=== PATIENT | female | born 1985 | race Caucasian/White ===

== ENCOUNTER 2022-08-09 12:49 | Emergency (ER) | payer OTHER ==
[~2022-08-09] VITALS: Ht 177.8 cm; Wt 89.4 kg
[2022-08-09 12:57] VITALS: BP 124/70
--- NOTE | 2022-08-09 13:00 | NUR ---
36YO FEMALE PT C/O N/V . CHILLS AND CRAMPING 8/10 LOWER ABDOMINAL PAIN XTHIS MORNING. REPORTS SUDDEN ONSET W/ CLEAR EMESIS, DENIES BLOOD. STATES DRINKING "MORE ALCOHOL THAN USUAL LAST NIGHT". ABDOMEN TENDER TO TOUCH, NON DISTENDED. 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 DENIES CHEST PAIN, SOB OR FEVER. 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 BED AT LOWEST POSITION, BED RAAILS UPX1 HX:ASTHMA ALLERGIES:PENICILLIN
--- NOTE | 2022-08-09 13:03 | NUR ---
Patient ambulated to bed 6.
[2022-08-09] MEDS ORDERED: NACL 0.9% 1,000 ML IV ONE (13:05)
[2022-08-09] MEDS ORDERED: FAMOTIDINE 20 MG/2 ML VIAL IVP ONE (13:05)
[2022-08-09] MEDS ORDERED: ONDANSETRON 4 MG/2 ML VIAL IVP ONE (13:05)
[2022-08-09] MEDS ORDERED: LORazepam 2 MG/ML VIAL IVP ONE (13:15)
[2022-08-09 13:17] LABS: BASOPHILS # (AUTO) 0.1 K/uL (0.00-0.22); BASOPHILS % (AUTO) 0.4 % (0.0-2.0); HEMATOCRIT 42.2 % (36-48); HEMOGLOBIN 14.7 g/dL (12.0-16.0); LYMPHOCYTES # (AUTO) 1.1 K/uL (2.5-16.5); MEAN CORPUSCULAR HEMOGLOBIN 33 pg (27-31); MEAN CORPUSCULAR HGB CONC 35 g/dL (33-37); MEAN CORPUSCULAR VOLUME 94.2 fL (80-94); MONOCYTES # (AUTO) 1.7 K/uL (0.8-1.0); MONOCYTES % (AUTO) 7.6 % (1.7-9.3); NEUTROPHILS # (AUTO) 19.6 K/uL (1.8-7.7); PLATELET COUNT (AUTO) 356 K/uL (140-450); RED BLOOD CELL COUNT(AUTO) 4.48 MIL/uL (4.20-5.40); RED CELL DISTRIBUTION WIDTH 13.1 % (11.6-13.7); WHITE BLOOD COUNT (AUTO) 22.5 K/uL (4.8-10.8)
--- NOTE | 2022-08-09 13:30 | NUR ---
36/F PRESENTS TO ED WITH C/O N/V, CHILLS AND LOWER ABDOMINAL PAIN SINCE THIS MORNING. PATIENT STATES " I DRANK ALOT AND DID SOME WEED LAST NIGHT AND THATS WHY I FEEL LIKE THIS." PATIENT DENIES TAKING MEDICATION FOR SYMPTOMS PRIOR TO ARRIVAL, STATES ABDOMEN IS TENDER TO TOUCH, PATIENT WITH MULTIPLE EPISODES OF VOMITING UPON ARRIVAL. PATIENT DENIES SOB, CP.
[2022-08-09 13:31] LABS: ALBUMIN 4.3 g/dL (3.4-5.0); CARBON DIOXIDE 18.6 mmol/L (21-32); CREATININE 1.1 mg/dL (0.6-1.3); TOTAL BILIRUBIN 1.4 mg/dL (0.0-1.0)
[2022-08-09 13:48] LABS: LYMPHOCYTES % (AUTO) 4.7 % (20.5-51.1); NEUTROPHILS % (AUTO) 87.3 % (42.2-75.2)
[2022-08-09 13:49] LABS: ANION GAP 24.7 (8-16); POTASSIUM 3.3 mmol/L (3.5-5.1)
[2022-08-09] MEDS ORDERED: POTASSIUM CHLORIDE 10 MEQ TABER PO ONE (13:55)
[2022-08-09] MEDS ORDERED: HALOPERIDOL IM 5 MG/ML VIAL IM ONE (14:10)
[2022-08-09] MEDS ORDERED: diphenhydrAMINE 50 MG/ML VIAL IVP ONE (14:10)
[2022-08-09] MEDS ORDERED: ONDA-188 PO (14:18)
[2022-08-09 15:15] VITALS: BP 127/65
--- NOTE | 2022-08-09 15:40 | NUR ---
Patient discharged with v/s stable. Written and verbal after care instructions given and explained. Patient verbalized understanding. Ambulatory with steady gait. All questions addressed prior to discharge. Advised to follow up with PMD.
== END 2022-08-09 15:40 | disposition home or self-care (01) ==
LOC: MED 12:49
DX: R11.2 Nausea with vomiting, unspecified (principal); R10.84 Generalized abdominal pain; F12.90 Cannabis use, unspecified, uncomplicated; Z88.0 Allergy status to penicillin; Z79.899 Other long term (current) drug therapy
CPT/HCPCS: 36415; 80053; 82150; 83690; 85025; 96361; 96372; 96374; 96375; 99284; J1200; J1630; J2060; J2405; J3490

== ENCOUNTER 2024-04-11 22:14 | Emergency (ER) | payer OTHER ==
[~2024-04-11] VITALS: Ht 177.8 cm; Wt 93.4 kg
[2024-04-11] MEDS: KETOROLAC 30 MG/ML VIAL IVP ONE (01:00)
[~2024-04-11 22:14] MED LIST: ONDA-188 PO
[2024-04-11 22:27] VITALS: BP 155/101; PULSE 112; RESP 22; TEMP 98.6; O2SAT 98
[2024-04-11 23:00] VITALS: BP 155/101; PULSE 112; RESP 22; TEMP 98.6; O2SAT 98
[2024-04-11] MEDS: NACL 0.9% 1,000 ML IV ONE (23:15)
[2024-04-11] MEDS: ONDANSETRON 4 MG/2 ML VIAL IVP ONE (23:15)
[2024-04-12] MEDS: METOCLOPRAMIDE 10 MG/2 ML INJ VIAL IVP ONE (00:14)
[2024-04-12] MEDS: diphenhydrAMINE 50 MG/ML VIAL IVP ONE (00:15)
[2024-04-12] MEDS ORDERED: METO-485 PO (01:00)
[2024-04-12] MEDS ORDERED: IBUP-2213 PO (01:00)
[2024-04-12] MEDS ORDERED: KETOROLAC 30 MG/ML VIAL ONE (01:16)
[2024-04-13] MEDS ORDERED: ONDA-188 PO (11:52)
== END 2024-04-12 01:25 | disposition home or self-care (01) ==
LOC: MED 22:14
DX: R11.2 Nausea with vomiting, unspecified (principal); R06.02 Shortness of breath; R10.13 Epigastric pain; R42 Dizziness and giddiness; J45.909 Unspecified asthma, uncomplicated; Z79.899 Other long term (current) drug therapy; Z88.0 Allergy status to penicillin
CPT/HCPCS: 81025; 96361; 96374; 96375; 99284; J1200; J1885; J2405; J2765; J7030

== ENCOUNTER 2024-04-13 08:44 | Emergency (ER) | payer OTHER ==
[~2024-04-13] VITALS: Ht 177.8 cm; Wt 93.1 kg
[~2024-04-13 08:44] MED LIST changes: +IBUP-2213 PO; +METO-485 PO
[2024-04-13 09:11] VITALS: BP 121/82; PULSE 78; RESP 17; TEMP 98; O2SAT 97
[2024-04-13] MEDS ORDERED: ONDANSETRON 4 MG/2 ML VIAL IVP ONE (09:55)
[2024-04-13] MEDS: NACL 0.9% 1,000 ML IV SCH (10:10)
[2024-04-13] MEDS: HALOPERIDOL IM 5 MG/ML VIAL IM ONE (10:11)
[2024-04-13] MEDS: METOCLOPRAMIDE 10 MG/2 ML INJ VIAL IVP ONE (10:13)
[2024-04-13 10:35] LABS: BASOPHILS % (AUTO) 0.3 % (0.0-2.0); EOSINOPHILS % (AUTO) 0.2 % (0.0-4.0); HEMATOCRIT 39.3 % (36-48); HEMOGLOBIN 13.4 g/dL (12.0-16.0); LYMPHOCYTES # (AUTO) 1.6 K/uL (2.5-16.5); LYMPHOCYTES % (AUTO) 13.1 % (20.5-51.1); MEAN CORPUSCULAR HEMOGLOBIN 34 pg (27-31); MEAN CORPUSCULAR HGB CONC 34 g/dL (33-37); MONOCYTES # (AUTO) 1.3 K/uL (0.8-1.0); MONOCYTES % (AUTO) 10.5 % (1.7-9.3); NEUTROPHILS # (AUTO) 9.3 K/uL (1.8-7.7); NEUTROPHILS % (AUTO) 75.9 % (42.2-75.2); PLATELET COUNT (AUTO) 246 K/uL (140-450); RED BLOOD CELL COUNT(AUTO) 3.97 MIL/uL (4.20-5.40); RED CELL DISTRIBUTION WIDTH 12.9 % (11.6-13.7); WHITE BLOOD COUNT (AUTO) 12.2 K/uL (4.8-10.8)
[2024-04-13 10:56] LABS: ANION GAP 19.4 (8-16); CALCIUM 9.5 mg/dL (8.5-10.1); CARBON DIOXIDE 20.9 mmol/L (21-32); CREATININE 0.7 mg/dL (0.6-1.3); POTASSIUM 3.3 mmol/L (3.5-5.1)
[2024-04-13 11:00] LABS: ALBUMIN 3.6 g/dL (3.4-5.0); BILIRUBIN,DIRECT 0.4 mg/dL (0.0-0.3); TOTAL BILIRUBIN 1.5 mg/dL (0.0-1.0); TOTAL PROTEIN, SERUM 7.9 g/dL (6.4-8.2)
[2024-04-13] MEDS ORDERED: ONDA-188 PO (11:52)
[2024-04-13] MEDS ORDERED: ALUMINUM HYD/MAG/SIMETHICONE 30 ML UDC ONE (11:56)
[2024-04-13] MEDS ORDERED: DICYCLOMINE HCL LIQUID 10 MG/5 ML UDC ONE (11:56)
[2024-04-13] MEDS: DICYCLOMINE HCL LIQUID 20 MG, ALUMINUM HYD/MAG/SIMETHICONE 30 ML, LIDOCAINE VISCOUS 2% ... PO ONE (11:59)
[2024-04-13] MEDS: NACL 0.9% 1,000 ML IV ONE (12:00)
[2024-04-13 12:34] VITALS: BP 122/56; PULSE 77; RESP 20; TEMP 98; O2SAT 96
== END 2024-04-13 12:33 | disposition home or self-care (01) ==
LOC: MED 08:44
DX: R11.2 Nausea with vomiting, unspecified (principal); R10.84 Generalized abdominal pain; J45.909 Unspecified asthma, uncomplicated; F12.90 Cannabis use, unspecified, uncomplicated; Z79.899 Other long term (current) drug therapy; Z88.0 Allergy status to penicillin
CPT/HCPCS: 36415; 80048; 80076; 81025; 83690; 84703; 85025; 96361; 96372; 96374; 99285; J1630; J2765